=== PATIENT | male | born 1950 | race Caucasian/White ===

== ENCOUNTER 2020-07-02 01:28 | Emergency (ER) | payer MEDICARE, BC ==
[~2020-07-02] VITALS: Ht 154.9 cm; Wt 106.6 kg
[~2020-07-02 01:28] MED LIST: AMITRIPTYLINE H10 M1 PO; AMITRIPTYLINE H25 M2 PO; ARIXTRA; ASA81BEC; AVAPRO 150 MG150 M1 PO; B-12500 MC1 SL; CALCIUM 500 +1 EAC5 PO; CENTRUM COMPLE1 EACH PO; CIPRO500 MG PO; COZAAR 50 MG TA50 M2 PO; DILTIAZEM ER240 M1 PO; DULCOLAX STOOL100 MG; EFFEXOR XR75 MG PO; FISH OIL 1,001000 M2 PO; HUMALOG100 UNIT/1 SQ; HYDROCHLOROTH12.5 M1 PO; HYDROCHLOROTH12.5 MG PO; HYDROCODONE-AP1 EAC6 PO; IRON325; IRON325 PO; LANTUS SC; LEVOTHYROXINE 0.1 MG PO; LYRICA 50 MG50 MG PO; METOCLOPRAMIDE10 MG PO; NEURONTIN250 MG/5 M PO; NORCO 5-325 TA1 EACH; OXYIR 5 MG CAPSU5 M1; PROBIOTIC1 EAC1 PO; THERAGRAN STRE1 EACH; VENLAFAXIN75 MG/1 T2 PO; VYVANSE20 MG PO; ZOCOR 20 MG TAB20 M1 PO; ZOFRAN ODT4 MG PO
[2020-07-02 02:09] LABS: ABSOLUTE EOSINOPHILS 0.1 thou/uL (0.0-0.7); ABSOLUTE LYMPHOCYTES 1.1 thou/uL (0.8-5.3); ABSOLUTE MONOCYTES 0.4 thou/uL (0.0-1.2); ABSOLUTE NEUTROPHILS 4.2 thou/uL (1.6-8.1); BASOPHILS 0.3 %; EOSINOPHILS 0.9 %; HEMATOCRIT 34.9 % (42.0-52.0); HEMOGLOBIN 11.7 gm/dL (14.0-18.0); LYMPHOCYTES 18.8 %; MCHC 33.4 g/dL (28.0-37.0); MCV 89.9 fL (80.0-100.0); MONOCYTES 7.4 %; MPV 8.6 fl. (7.2-11.1); NUCLEATED RBCS 0 /100WBC; PLATELET COUNT* 151 thou/uL (150-400); POLYS 72.6 %; RBC 3.89 mil/uL (4.50-6.00); RDW-CV 14.5 % (10.5-14.5); WBC 5.8 thou/uL (4.0-11.0)
[2020-07-02 02:12] LABS: CALCIUM 9.1 mg/dL (8.5-10.1); CREATININE 1.6 mg/dL (0.6-1.3); POTASSIUM 3.7 mmol/L (3.5-5.1)
[2020-07-02 02:17] LABS: ALBUMIN 3.4 g/dL (3.4-5.0); TOTAL BILIRUBIN 0.4 mg/dL (<0.1-1.0); TOTAL PROTEIN 6.9 g/dL (6.4-8.2)
[2020-07-02 03:43] VITALS: BP 146/67
--- NOTE | 2020-07-02 14:12 | EKG ---
[place] [address] ELECTROCARDIOGRAM REPORT Name: BRUNO SHINE Room: [facility]#: [id number] Admission: 07/02/20 Attend Phys: Discharge: 07/02/20 Date of : 54 Date of Service: 07/02/20 0132 Report #: [id number] THIS REPORT FOR: //name// [facility] ED Test Date: 2020-07-02 Test Time: 01:32:40 Pat Name: BRUNO SHINE Department: Room: Gender: Director Of Medicare: [place] : 1950 Requested By: Manasa Cervantes Order Number: [id number] MD: Dwayne Kirk Measurements Intervals Fox Rate: 65 P: 51 SC: 229 QRS: 28 QRSD: 117 T: 160 QT: 401 QTc: 417 Interpretive Statements Sinus rhythm Prolonged SC interval Incomplete right bundle branch block Inferior infarct, old, possible Compared to ECG 10/29/2016 08:20:51 First degree AV block now present Incomplete right bundle-branch block now present Myocardial infarct finding now present Electronically Signed On 07-02-2020 14:12:05 [employer] by Dwayne Kirk [email or web address] <ELECTRONICALLY SIGNED> By: Dwayne Kirk MD, FACC 07/02/20 1412 1 1 Dwayne Kirk MD, FACC /EPI
== END 2020-07-02 03:44 | disposition home or self-care (01) ==
LOC: M.ERS 01:28
PROVIDERS: Emergency Medicine
DX: E11.649 Type 2 diabetes mellitus with hypoglycemia without coma (principal); I10 Essential (primary) hypertension; E11.40 Type 2 diabetes mellitus with diabetic neuropathy, unspecified; Z79.4 Long term (current) use of insulin